=== PATIENT | female | born 1955 | race Caucasian/White ===

== ENCOUNTER 2016-11-06 04:01 | Emergency (ER) | payer OTHER ==
[~2016-11-06] VITALS: Ht 172.7 cm; Wt 90.0 kg
[2016-11-06 04:04] VITALS: BP 145/70; PULSE 99; RESP 16; TEMP 98.3; O2SAT 98
[2016-11-06] MEDS ORDERED: ALPR.5 PO (04:53)
[2016-11-06] MEDS ORDERED: CYCL7.5T33 PO (04:53)
[2016-11-06] MEDS ORDERED: ORPHENADRINE INJ 60 MG/2 ML AMP IM ONE (05:00)
[2016-11-06] MEDS ORDERED: MORPHINE SULFATE 8 MG/ML INJ IV PUSH ONE (05:00)
[2016-11-06] MEDS ORDERED: PROMETHAZINE INJ 25 MG/ML VIAL IM ONE (05:00)
[2016-11-06] MEDS ORDERED: CYCL1TAB29 PO (05:11)
--- NOTE | 2016-11-06 05:28 | RADRPT ---
EXAM DATE/TIME: 11/06/2016 05:06 [facility] COMPARISON: No previous studies available for comparison. INDICATIONS : Right upper back and neck pain. RADIATION DOSE: 40.64 CTDIvol (mGy) MEDICAL HISTORY : None SURGICAL HISTORY : Tubal ligation. ENCOUNTER: Initial ACUITY: 1 day PAIN SCALE: 8/10 LOCATION: Right neck TECHNIQUE: Volumetric scanning of the cervical spine was performed. Multiplanar reconstructions in the sagittal, coronal and oblique axial planes were performed. Using automated exposure control and adjustment o f the mA and/or kV according to patient size, radiation dose was kept as low as reasonably achievable to obtain optimal diagnostic quality images. FINDINGS: VERTEBRAE: Normal vertebral body height. 10 mm mixed lytic and sclerotic focus seen in the anterior aspect of th e C6 vertebral body that is most likely reactive. ALIGNMENT: No evidence of subluxation. C2-C3: The bony spinal canal is normal in size. No evidence of disc bulge or herniation. The neural forami na are bilaterally patent. C3-C4: The bony spinal canal is normal in size. No evidence of disc bulge or herniation. The neural forami na are bilaterally patent. C4-C5: The bony spinal canal is normal in size. No evidence of disc bulge or herniation. The neural forami na are bilaterally patent. C5-C6: There is moderate to severe disc space narrowing with a small, broad posterior disc osteophyte comple x and moderate uncovertebral and facet osteoarthritis. There is resultant mild to moderate right and mild left foraminal encroachment. Superimposed soft appearing moderate sized right paracentral disc p rotrusion also present which causes mild to moderate spinal stenosis eccentric towards the right and probable short segment cord compression. C6-C7: The disc has moderate to severe loss of height and there is a small, broad posterior disc osteophyte complex. There is mild bilateral uncovertebral and facet osteoarthritis. Mild bilateral foraminal diane nosis noted. There is no significant spinal stenosis. C7-T1: The bony spinal canal is normal in size. No evidence of disc bulge or herniation. The neural forami na are bilaterally patent. CONCLUSION: 1. Cervical spine degenerative changes at C5/C6 and C6/C7 as above. 2. Mild to moderate right, mild left foraminal stenosis and mild to moderate spinal stenosis at C5/C6 . 3. Mild bilateral foraminal encroachment at C6/C7. 4. 10 mm mixed lytic and sclerotic focus of the C6 vertebral body, indeterminate but most likely dege nerative in etiology. 5. There is no fracture or subluxation of the cervical spine. Srinivas Yao MD on November 06, 2016 at 5:19 Board Certified Radiologist. This report was verified electronically.
--- NOTE | 2016-11-06 05:30 | PD ---
HPI Chief Complaint: Back/ Neck Pain or Injury Time Seen by Provider: 05:23 Travel History International Travel<30 days: No Contact w/Intl Traveler<30days: No Traveled to known affect area: No History of Present Illness HPI 61-year-old white female presents to emergency department accompanied by her for evaluation of neck pain. The patient states that she has a history of chronic back pain. She also has some intermittent pain in her neck. She states 2 weeks ago she had pain develop in the right side of her neck. She takes Flexeril for muscle pain. She states that the pain seemed to improve for a week but then has returned over the past week. She states the pain radiates from her right shoulder up into her right neck and down her right arm. She states the pain can be severe and incapacitating at times. She denies any direct trauma. She denies any acute bowel or bladder changes. She does state that now that her neck is started to bother her this is exacerbated her lower back pain. Patient states that she is allergic to codeine and Percocet. She states that they make her sick and vomit. She states that she can take morphine but does use Phenergan associated with it to prevent nausea. The patient's family doctor is Dr. Dunn. She has not spoken with him regarding her pain. She would like to get a referral to Dr. Clemens. [facility] Past Medical History Narrative Medical Chronic neck and back pain Tetanus Vaccination: < 5 Years ?: Not LMP: TUBAL Past Surgical History Narrative Surgical cHOLECYSTECTOMY, TUBAL LIGATION Social History Alcohol Use: Yes Tobacco Use: No Substance Use: No Allergies-Medications (Allergen,Severity, Reaction): Coded Allergies: Codeine (Verified Allergy, Intermediate, VOMITING, 11/06/16) Iodine (Verified Allergy, Intermediate, HIVES AND SOB, 11/06/16) Latex (Verified Allergy, Intermediate, SKIN SANTILLAN, 11/06/16) Percocet (Verified Allergy, Intermediate, VOMITING AND PASSING OUT, 11/06/16 ) Sulfa (Verified Allergy, Intermediate, HIVES AND VOMITING, 11/06/16) Reported Meds & Prescriptions Reported Meds & Active Scripts Active Deltasone (Prednisone) 20 Mg Tab 40 Mg PO BID Lortab (Hydrocodone-Acetaminophen) 5-325 Mg Tab 1 Tab PO Q6H PRN Phenergan (Promethazine HCl) 25 Mg Tab 25 Mg PO Q6H PRN Reported Flexeril (Cyclobenzaprine HCl) 10 Mg Tab 10 Mg PO TID Xanax (Alprazolam) 0.5 Mg Tab 0.5 Mg PO Q6H PRN Review of Systems Except as stated in HPI: all other systems reviewed are Neg HENT: Positive: Headaches, Neck Stiffness, Neck Pain Cardiovascular: No: Chest Pain or Discomfort, Tachycardia Respiratory: No: Cough Gastrointestinal: No: Nausea, Vomiting, Abdominal Pain Genitourinary: No: Dysuria, Hematuria Musculoskeletal: Positive: Myalgias, Arthralgias, Limited ROM, Cramping, Pain, No: Weakness, Atrophy Skin: No Rash, No Itching Physical Exam Narrative GENERAL: Well-developed, well-nourished in no apparent distress. Nontoxic appearing. HEAD: Normocephalic, atraumatic. EYES: Pupils equal round and reactive. Extraocular motions intact. No scleral icterus. No injection or drainage. ENT: Nose clear. Throat without erythema, tonsillar hypertrophy or exudate. Uvula midline. Airway patent. NECK: Trachea midline. Supple, no central bony tenderness. She has right paracervical muscle tenderness down into the periscapular region. She reports radicular pain into the right arm. CARDIOVASCULAR: Regular rate and rhythm without murmurs, gallops, or rubs. RESPIRATORY: Clear to auscultation. Breath sounds equal bilaterally. No wheezes , rales, or rhonchi. GASTROINTESTINAL: Abdomen soft, non-tender, nondistended. No hepato-splenomegaly , or palpable masses. No guarding. EXTREMITIES: No clubbing, cyanosis, or edema. No joint tenderness. BACK: Complaints of tenderness no lower paralumbar spine. Without deformity. No flank tenderness. No saddle anesthesia. NEUROLOGICAL: Awake, alert and oriented x 3 .Cranial nerves grossly intact. Motor and sensory grossly within normal limits. Normal speech. Data Data Last Documented VS Vital Signs Date Time Temp Pulse Resp B/P Pulse Ox O2 Delivery O2 Flow Rate FiO2 11/06/16 04:04 98.3 99 16 145/70 98 Room Air Orders Promethazine Inj (Phenergan Inj) (11/06/16 05:00) Morphine Inj (Morphine Inj) (11/06/16 05:00) Orphenadrine Inj (Norflex Inj) (11/06/16 05:00) Ct Cerv Spine W/O Contrast (11/06/16 04:52) MDM Medical Decision Making Medical Screen Exam Complete: Yes Emergency Medical Condition: Yes Medical Record Reviewed: Yes Interpretation(s) Last 24 hours Impressions C[address] Spine CT 11/06/16 0452 Signed Impressions: Service Date/Time: Sunday, November 06, 2016 05:06 - CONCLUSION: 1. Cervical spine degenerative changes at C5/C6 and C6/C7 as above. 2. Mild to moderate right, mild left foraminal stenosis and mild to moderate spinal stenosis at C5/C6. 3. Mild bilateral foraminal encroachment at C6/C7. 4. 10 mm mixed lytic and sclerotic focus of the C6 vertebral body, indeterminate but most likely degenerative in etiology. 5. There is no fracture or subluxation of the cervical spine. Srinivas Yao MD Differential Diagnosis MDM: Neck sprain, spasm, HNP Narrative Course Patient's given Phenergan 50 mg IM, morphine 8 mg IM and 60 mg and Norflex IM. The patient states that her pain is improving. They are given a copy of the CAT scan report. She is aware that she has cervical radiculopathy secondary to arthritic changes. This is cervical radiculopathy, exacerbation of chronic back pain Diagnosis Primary Impression: Cervical radiculopathy Additional Impression: Acute exacerbation of chronic low back pain Patient Instructions: Narcotic given in the ED, General Instructions Additional Instructions: Rest. Ice for the next 3 days followed by heat . Continue her Flexeril. Phenergan 30 minutes before taking your Lortab. Prednisone.. Follow-up with a primary care doctor in 1-2 days. Follow-up with a neurosurgeon for evaluation. Return to the ER for emergencies. Med/Other Pt SpecificInfo: Prescription(s) given Scripts Prednisone (Deltasone)20 Mg Tab40 Mg PO BID #28 TAB Prov:Carmen Van MD 11/06/16 Hydrocodone-Acetaminophen (Lortab)5-325 Mg Tab1 Tab PO Q6H PRN (PAIN) #20 TAB Prov:Carmen Van MD 11/06/16 Promethazine (Phenergan)25 Mg Tab25 Mg PO Q6H PRN (Nausea/Vomiting) #20 TAB Prov:Carmen Van MD 11/06/16 Disposition: 01 DISCHARGE HOME Condition: Stable Rosalio Mayo Nov 06, 2016 05:30
[2016-11-06] MEDS ORDERED: PRED-503 PO (05:39)
[2016-11-06] MEDS ORDERED: PROM25TA5 PO (05:39)
[2016-11-06] MEDS ORDERED: HYDR-3533 PO (05:39)
[2017-01-08] MEDS ORDERED: ZOFR4TAB PO (15:06)
[2017-01-27] MEDS ORDERED: ZOFR4TAB PO (09:13)
[2017-02-10] MEDS ORDERED: TIZA2TAB PO (12:09)
[2017-02-10] MEDS ORDERED: ALPR.5 PO (12:09)
[2017-03-05] MEDS ORDERED: TIZA4 PO (16:27)
== END 2016-11-06 06:43 | disposition home or self-care (01) ==
LOC: NEPB 04:01
DX: M54.12 Radiculopathy, cervical region (principal); M54.9 Dorsalgia, unspecified
CPT/HCPCS: 72125; 96372; 99283; J2270; J2360; J2550

== ENCOUNTER → 2017-02-10 | Outpatient (CLI) | payer OTHER ==
[~2017-02-10] MED LIST: ALPR.5 PO; BENA25TA3 PO; CYCL1TAB29 PO; HYDR-3533 PO; HYDR-3583 PO; PRED-503 PO; PROM25TA5 PO; TIZA2TAB PO; TIZA4 PO; ZOFR4TAB PO
== END ==
LOC: CPRE 11:37
PROVIDERS: ATTEND Neurological Surgery
DX: Z01.812 Encounter for preprocedural laboratory examination (principal)

== ENCOUNTER 2017-02-11 06:05 | Observation (INO) | payer OTHER ==
--- NOTE | 2017-02-10 21:28 | MH ---
cc: AMBER LIMON MD, ROHIT K. M.D. DATE OF ADMISSION 02/11/2017 ADMISSION DIAGNOSIS Cervical degenerative disk disease. HISTORY OF PRESENT ILLNESS This is a 61-year-old female who presented to us for evaluation of neck and right upper extremity pain. She has had a chronic history of neck pain for 10-12 years which was exacerbated in November when she was vacuuming. She states she could feel the muscles in her neck tighten up. She states her symptoms progressively got worse and was having pain shoot into the right trapezius and scapula, superior scapula, right biceps and axilla area. She would get shooting pins and needles into her right hand with numbness. She has decreased strength in the right hand and drops stuff all of the time. She has had some similar symptoms in the left forearm but not like the right. She has been to PT three sessions and has not been much relief. She has been to pain management for her low back and states she would not go back for her neck. PAST MEDICAL HISTORY Significant for: 1. Hyperlipidemia. 2. Allergic rhinitis. 3. Gastroesophageal reflux disease. 4. Pain disorder. 5. Low vitamin D. 6. Diverticulosis. 7. Fatty liver. 8. Osteoarthritis 9. Sleep apnea per her history form. PAST SURGICAL HISTORY 1. Left knee arthroscopic surgery. 2. Low back surgery. 3. Cholecystectomy. 4. Tubal ligation CURRENT MEDICATIONS She is takin. Tizanidine 4 mg three times a day. 2. Ondansetron 4 mg p.r.n. nausea. 3. Hydrocodone 5/325 q.8 h. ALLERGIES TO MEDICATIONS SHE IS ALLERGIC TO SULFA, CODEINE, PERCOCET, LATEX, BETADINE, AND IODINE. SHE STATES THAT SHE HAS A SENSITIVITY TO PAIN MEDICATIONS UNLESS SHE GETS ANTIEMETICS SHE GETS NAUSEATED. SHE ALSO SAYS THAT SHE IS ALLERGIC TO TAPE ADHESIVES AND BANDAGE ADHESIVE BUT IS ABLE TO TOLERATE PAPER TAPE. FAMILY HISTORY Father is from a stroke and congestive heart failure. Her mother is at 71 had colon cancer and uterine cancer. She has a brother who is alive. SOCIAL HISTORY She is . She has one child. She does not smoked and has not smoked before. She drinks occasionally two to three drinks a week. REVIEW OF SYSTEMS CONSTITUTIONAL: She denies any fever or chills. EARS, NOSE, AND THROAT: Positive for sinus congestion. No pharyngitis. CARDIOVASCULAR: No chest pain. Positive for occasional palpitations. RESPIRATORY: No cough or shortness of breath. GENITOURINARY: No dysuria or hematuria. MUSCULOSKELETAL: Positive for neck pain. SKIN: No rashes. Positive for pruritus. NEUROLOGICAL: No difficulty with speech or memory. GASTROINTESTINAL: Positive for nausea and constipation. PSYCHIATRIC: Positive for anxiety or depression symptoms. ENDOCRINE: Positive for polyuria or polydipsia. HEMATOLOGIC: Positive for easy bruising and bleeding tendencies. IMAGING Data reviewed, CT scan of the cervical spine from November 06, 2016 [place] emergency room reveals a severe disk degeneration with disk height collapse at the C5-C6 and C6-C7 levels with significant right foraminal stenosis at C5-C6. She has a chronic C6 vertebral body sclerotic / lytic abnormality which appears degenerative in nature. MRI of the cervical spine from November 26, 2016 reveals a disk/osteophyte complex at the C5-C6 level with a right-sided foraminal stenosis. There is also degenerative disk disease and protrusion at the C6-C7 level without any significant spinal foraminal stenosis. PHYSICAL EXAMINATION HEAD: Normocephalic, atraumatic. NECK: Supple. No carotid bruits heard on auscultation. She has positive foraminal closure signs with tilting the head to the right side. EYES: Reveal pupils are equal. Sclerae is nonicteric. LUNGS: Clear to auscultation bilaterally. HEART: Regular rate and rhythm. Normal S1-S2. ABDOMEN: Soft and nontender. Positive bowel sounds. SKIN: Reveals no cyanosis or erythema. MUSCULOSKELETAL: The patient has giveaway weakness in the right upper extremity 4/5. Otherwise she has 5/5 strength in the left upper extremity. She ambulates without any assistive device. NEUROLOGIC: She is awake and alert and oriented. Cranial nerves II through XII appear grossly intact. Her speech is fluent. Comprehension is good. Sensation is decreased in her right upper extremity in all distributions otherwise is intact. Reflexes are 2+ in the upper extremities, diminished in the lower extremities. There is no García reflex. IMPRESSION A 61-year-old female with a chronic history of neck and low back pain. Her neck pain worsened recently with right upper extremity C6 radiculopathy although she says she feels numbness and paresthesias distally in her fingers all over the right hand along with subjective weakness in the right upper extremity. This did prompt an emergency room visit and subsequently she underwent physical therapy. She states that she cannot live with her current level of discomfort. She also suffers from chronic low back pain and has had lumbar spine surgery in the past but states that the neck and right upper extremity symptoms bother her the most at this point. She has advanced C5-C6 and C6-C7 degenerative disk disease along with a disk/osteophyte complex and right-sided C5-C6 foraminal stenosis which appeared to be the most symptomatic. We have discussed the treatment options with the patient in great detail which include continued conservative treatment measures with physical therapy and pain management versus surgical intervention. We have discussed the procedure which would entail a C5 / C6 anterior cervical fusion with interbody cage and cervical plate placement in detail. We have discussed the risks involved with surgery to include but not limited to bleeding, infection, muscle weakness, voice hoarseness, difficulty swallowing, heart attack, stroke, blood clots, non fusion, scar tissue formation, among others. The patient states that she understands the procedure as well as the risks involved and she is requesting that we proceed with surgical intervention. She was therefore scheduled accordingly. DICTATED BY: Forest Briones PA-C MD LG Hernandez/SINAI /4:46 PM /8:59 PM
[~2017-02-11] VITALS: Ht 172.7 cm; Wt 95.8 kg
[~2017-02-11 06:05] MED LIST changes: -BENA25TA3 PO; -CYCL1TAB29 PO; -HYDR-3583 PO; -PRED-503 PO; -PROM25TA5 PO; -TIZA4 PO
[2017-02-11] MEDS ORDERED: SODIUM CHLOR 0.9% 1000 ML INJ 1,000 ML IV SCH (06:30)
[2017-02-11] MEDS ORDERED: METOPROLOL TARTRATE 25 MG TAB PO PRN (06:30)
[2017-02-11] MEDS ORDERED: SODIUM CHLORID 0.9% 500 ML IV PRN (06:30)
[2017-02-11] MEDS ORDERED: VANCOMYCIN HCL 1000 MG ON-CALL/NS 250 ML IV SCH ×2 (06:30)
[2017-02-11] MEDS ORDERED: LACTATED RINGER'S 1000 ML IV PRN (06:30)
[2017-02-11] MEDS ORDERED: CHLORHEXIDINE GLUCONATE 2 % 1 PACK (2 CLOTHS) TOPICAL PRN (06:30)
[2017-02-11] MEDS ORDERED: INSULIN HUMAN REGULAR 1,000 UNITS/10 ML VIAL SQ PRN (06:30)
[2017-02-11] MEDS ORDERED: BENA25TA3 PO (06:42)
[2017-02-11 06:44] VITALS: BP 142/77; PULSE 63; RESP 20; TEMP 99; O2SAT 97
[2017-02-11] MEDS ORDERED: APREPITANT 40 MG CAP ONE (08:27)
[2017-02-11] MEDS ORDERED: ACETAMINOPHEN 1000 MG/100 ML VIAL IV ONE (08:28)
[2017-02-11] MEDS ORDERED: HYDROmorphone HCL PF 2 MG/ML VIAL ONE (08:28)
[2017-02-11] MEDS ORDERED: fentaNYL CITRATE 250 MCG/5 ML AMP ONE (08:28)
[2017-02-11] MEDS ORDERED: MIDAZOLAM HCL 2 MG/2 ML VIAL ONE ×2 (08:28)
[2017-02-11] MEDS ORDERED: diphenhydrAMINE HCL 50 MG/ML VIAL ONE (08:31)
[2017-02-11] MEDS ORDERED: VANCOMYCIN HCL 1000 MG VIAL ONE (08:47)
[2017-02-11] MEDS ORDERED: BUPIVACAINE/EPINEPHRINE 0.5% PF 30 ML VIAL ONE (08:48)
[2017-02-11] MEDS ORDERED: GELFOAM SIZE 100 ONE (08:48)
[2017-02-11] MEDS ORDERED: THROMBIN (TOPICAL) 5,000 UNIT VIAL ONE (08:48)
[2017-02-11] MEDS ORDERED: NS + KCL 20 MEQ INJ 1,000 ML IV SCH (11:28)
[2017-02-11] MEDS ORDERED: PROCHLORPERAZINE INJ 10 MG/2 ML VIAL IV PUSH PRN (11:30)
[2017-02-11] MEDS ORDERED: SODIUM CHLORIDE 0.9% FLUSH 10 ML FLUSH IV FLUSH PRN (11:30)
[2017-02-11] MEDS ORDERED: ALUMINUM/MAGNESIUM/SIMETH 30 ML CUP PO PRN (11:30)
[2017-02-11] MEDS ORDERED: ZOLPIDEM TARTRATE 5 MG TAB PO PRN (11:30)
[2017-02-11] MEDS ORDERED: ACETAMINOPHEN/HYDROcodone 325 MG/10 MG TAB PO PRN (11:30)
[2017-02-11] MEDS ORDERED: ACETAMINOPHEN 325 MG TAB PO PRN (11:30)
[2017-02-11] MEDS ORDERED: MAGNESIUM HYDROXIDE SUSP 30 ML CUP PO PRN (11:30)
[2017-02-11] MEDS ORDERED: ALPRAZolam 0.5 MG TAB PO PRN (11:30)
[2017-02-11] MEDS ORDERED: MENTHOL LOZENGE BUCCAL PRN (11:30)
[2017-02-11] MEDS ORDERED: cloNIDine HCL 0.1 MG TAB PO PRN (11:30)
[2017-02-11] MEDS ORDERED: MORPHINE SULFATE 4 MG/ML INJ IV PRN (11:30)
--- NOTE | 2017-02-11 11:36 | PD.OP ---
Arnol Dunn MD Operative Report Date of Surgery: February 11, 2017 Preoperative Diagnosis: Intractable neck pain with the right C6 radiculopathy; C5-6 degenerative disc disease with disc osteophyte complex and associated spinal/foraminal stenosis Postoperative Diagnosis: Same Procedure: Anterior cervical C5-6 microdiscectomy with interbody fusion; anterior C5-6 cervical plate placement; C5-6 interbody cage placed; microsurgical technique Anesthesia: Gen. endotracheal by Isabel Proctor Surgeon: Aldo Clemens M.D. City Engineer(s): Zamzam Vyas Operation and Findings: Following administration of general endotracheal anesthesia, the patient received a gram of vancomycin and Decadron 10 mg intravenously. Sequential compression devices were placed in supine position on a North table and all pressure points adequately padded. The head secured in a donut and anterior cervical region then shaved and prepped with Chloraprep and sterilely draped with Ioban along with the usual sterile draping. A transverse skin incision on the left side of the neck was then made after infiltrating the skin with 0.5% Marcaine with epinephrine solution extending down through the platysma. At the anterior border of the sternocleidomastoid further dissection was undertaken developing a plane between the carotid sheath laterally and the trachea esophagus medially. The prevertebral fascia was exposed and dissected out. The medial attachments of the longus colli muscles were detached and a self- retaining retractor used for exposure. The C5-6 disc space was localized with a marking the disc space and using lateral fluoroscopy. Taylor distraction screws 14 mm length were placed one in the C5 and one in the C6 body interbody distraction and exposure. There was significant disc degeneration with disc height collapse and anterior osteophytes noted at the C5-6 level and the osteophytes were resected with a Leksell and annulus incised with a 15 blade and further dissection undertaken using microtechnique with microscope magnification. Diskectomy was undertaken with pituitaries and the endplates were also decorticated with curettes and drill bit. And more posteriorly there was disk osteophyte complex compressing the thecal sac along with a significant uncovertebral joint hypertrophy with right foraminal stenosis which was decompressed along with removal of the posterior longitudinal ligaments at both levels. The foramen was decompressed bilaterally using a Kerrison's and palpation with a nerve hook, the exiting nerve roots were felt to be free. The area was then copiously irrigated. I then placed a Peek cage packed with local autograft bone at the C5-6 interspace under fluoroscopy guidance. Taylor distraction pins were removed and the holes plugged with Gelfoam for hemostasis. In order to facilitate the fusion and provide stabilization, a Precision spine cervical plate was then placed with two 14 mm variable angle screws in the C5 body and two 14 mm fixed angle screws in the C6 body. The plate screw locking mechanism was then engaged. AP and lateral fluoroscopy confirmed good placement of the construct and the retractor was then removed. Muscular bleeding points were cauterized with bipolar cautery and Gelfoam was then also used for hemostasis which was removed. The platysma was then approximated using 3-0 Vicryl interrupted stitches and 3-0 Vicryl subcuticular stitch also placed in an interrupted fashion, and final skin closure was with Mastisol and Steri-Strips. Sterile dressing was then applied. The patient was then extubated and taken to the recovery room. There are no intraoperative complications and all sponge and needle counts were correct at the end of procedure. Estimated blood loss was about 30 cc. The patient did undergo intraoperative neurologic monitoring which remained stable throughout the surgery. Aldo Clemens MD February 11, 2017 11:36
--- NOTE | 2017-02-11 11:42 | RADRPT ---
EXAM DATE/TIME: 02/11/2017 09:01 [facility] COMPARISON: No previous studies available for comparison. INDICATIONS : Post-op C5-C6 anterior cervical fusion. MEDICAL HISTORY : None. SURGICAL HISTORY : None. ENCOUNTER: Initial ACUITY: 1 day PAIN SCORE: Non-responsive. LOCATION: neck CONCLUSION: Fluoroscopic images are obtained during placement of compression plate at C5-6. Intervertebral disc d evice also noted. Forest Hernandez MD on February 11, 2017 at 11:37 Board Certified Radiologist. This report was verified electronically.
--- NOTE | 2017-02-11 11:43 | RADRPT ---
EXAM DATE/TIME: 02/11/2017 09:01 [facility] COMPARISON: No previous studies available for comparison. INDICATIONS : C5-C6 anterior cervical fusion. Level localization. MEDICAL HISTORY : None. SURGICAL HISTORY : None. ENCOUNTER: Initial ACUITY: 1 day PAIN SCORE: Non-responsive. LOCATION: neck CONCLUSION: Lateral Fluoroscopic image of the cervical spine demonstrate temporary probe overlying the anterior d isc space at C5-6.. Forest Hernandez MD on February 11, 2017 at 11:40 Board Certified Radiologist. This report was verified electronically.
[2017-02-11] MEDS ORDERED: PILL SPLITTER OTHER PRN (11:45)
[2017-02-11] MEDS ORDERED: *morphine SULFATE 8 MG/ML PERIprocedure ONLY ONE ×3 (11:46→12:06)
[2017-02-11] MEDS ORDERED: *ONDANSETRON 4 MG VIAL PERIprocedural Use ONLY ONE (11:47)
[2017-02-11] MEDS ORDERED: PROPOFOL 200 MG/20 ML AMP IV ONE (12:00)
[2017-02-11] MEDS ORDERED: ONDANSETRON HCL 4 MG/2 ML VIAL IV PUSH ONE (12:00)
[2017-02-11] MEDS: METOCLOPRAMIDE HCL 10 MG/2 ML VIAL IVS SCH ×2 (12:00→20:18)
[2017-02-11] MEDS ORDERED: NORMOSOL R INJ 1,000 ML IV ONE (12:00)
[2017-02-11] MEDS ORDERED: DO NOT ADM ANY ANTICOAGULANT DRUGS PRN (12:15)
[2017-02-11] MEDS ORDERED: *HYDROmorphone PF 1 MG VIAL PERIprocedural Use ONLY ONE (12:24)
[2017-02-11] MEDS: ACETAMINOPHEN/HYDROcodone 325 MG/10 MG TAB PO PRN ×2 (14:33→19:06)
[2017-02-11] MEDS: DEXAMETHASONE SOD PHOS 4 MG/ML VIAL IV SCH ×2 (14:35→20:18)
[2017-02-11] MEDS: ONDANSETRON HCL 4 MG/2 ML VIAL IV PRN (14:35)
[2017-02-11 16:00] VITALS: BP 98/53; PULSE 65; RESP 16; TEMP 96.2; O2SAT 93
[2017-02-11] MEDS: diphenhydrAMINE HCL 50 MG CAP PO PRN (19:08)
[2017-02-11] MEDS: DOCUSATE SODIUM 100 MG CAP PO SCH (20:17)
[2017-02-11] MEDS: SODIUM CHLORIDE 0.9% FLUSH 10 ML FLUSH IV FLUSH SCH (20:18)
[2017-02-11 20:48] VITALS: BP 127/59; PULSE 71; RESP 18; TEMP 96.7; O2SAT 96
[2017-02-12 00:06] VITALS: BP 114/58; PULSE 66; RESP 18; TEMP 96.5; O2SAT 95
[2017-02-12] MEDS: ACETAMINOPHEN/HYDROcodone 325 MG/10 MG TAB PO PRN ×3 (00:44→09:21)
[2017-02-12] MEDS: METOCLOPRAMIDE HCL 10 MG/2 ML VIAL IVS SCH (03:36)
[2017-02-12] MEDS: DEXAMETHASONE SOD PHOS 4 MG/ML VIAL IV SCH (03:36)
[2017-02-12 03:50] VITALS: BP 102/52; PULSE 70; RESP 17; TEMP 98.2; O2SAT 95
[2017-02-12 07:51] VITALS: BP 104/54; PULSE 76; RESP 18; TEMP 96.9; O2SAT 96
[2017-02-12] MEDS: DOCUSATE SODIUM 100 MG CAP PO SCH (07:53)
[2017-02-12] MEDS ORDERED: PANTOPRAZOLE SOD 40 MG DELAYED RELEASE TAB PO SCH (09:00)
[2017-02-12] MEDS: SODIUM CHLORIDE 0.9% FLUSH 10 ML FLUSH IV FLUSH SCH (09:00)
[2017-02-12] MEDS: diphenhydrAMINE HCL 50 MG CAP PO PRN (09:20)
--- NOTE | 2017-02-12 09:27 | HHI.NSPN ---
(Forest Briones) History Chief Complaint: Incisional discomfort (Forest Briones) Interval History 02/12/17: Pt complains of incisional neck pain. No radiculopathy or paresthesias in UEs. Pt ambulating short distance to bathroom well. She requests to be discharge with muscle relaxants and antiemetics. Voiding well. ( Forest Briones) Review of Systems General: Negative for: fever, chills, insomnia Respiratory: Negative for: shortness of breath, cough, sputum Cardiovascular: Negative for: chest pain Gastrointestinal: Positive for: nausea (Controlled with antiemetics. Pt gets nausea with pain medication.), Negative for: vomitting, diarrhea, constipation (Forest Briones) Exam Results Vital Signs Date Time Temp Pulse Resp B/P Pulse Ox O2 Delivery O2 Flow Rate FiO2 02/12/17 07:51 96.9 76 18 104/54 96 02/11/17 13:20 Nasal Cannula 3 Intake and Output 02/11/17 02/11/17 02/11/17 07:59 15:59 23:59 Intake Total 2300 ml 480 ml Output Total 25 ml Balance 2275 ml 480 ml (Froest Briones) Physical Examination Resp: CTA bilaterally Heart: NSR no murmurs Abd: Soft positive bs Skin: Incision clean and dry. New bandage placed. Muscle: Moves all 4 extremities with good strength. Ambulates short distance to bathroom. Neuro: Pt awake and alert. Follows commands well. Speech clear and appropriate. (Forest Briones) Lab, Micro, Other Results Last Impressions Cervical Spine X-Ray 02/11/17 0000 Signed Impressions: Service Date/Time: Saturday, February 11, 2017 09:01 - CONCLUSION: Lateral Fluoroscopic image of the cervical spine demonstrate temporary probe overlying the anterior disc space at C5-6.. Forest Hernandez MD 02/11/17 02/11/17 02/12/17 14:59 22:59 06:59 Intake Total 2300 ml 480 ml 480 ml Output Total 25 ml Balance 2275 ml 480 ml 480 ml Intake Oral 500 ml 480 ml 480 ml IV Total 100 ml Other 1700 ml Output Urine Total 0 ml Estimated Blood Loss 25 ml # Voids 1 3 5 # Bowel Movements 0 0 0 (Forest Briones) Medical Decision Making Impression and Plan A: 61 y/o FM s/p C5/C6 anterior cervical fusion. P: Discharge pt home. discussed restrictions Follow up as instructed in 6 weeks. (Forest Briones) Attending Statement The exam, history, and the medical decision-making described in the above note were completed with the assistance of the mid-level provider. I reviewed and agree with the findings presented. I attest that I had a [id number] encounter with the patient on the same day, and personally performed and documented my assessment and findings in the medical record. (Aldo Clemens MD) Forest Briones February 12, 2017 09:27 Aldo Clemens MD February 12, 2017 16:14
[2017-02-12] MEDS ORDERED: HYDR-3583 PO (09:33)
[2017-02-12] MEDS ORDERED: TIZA4 PO (09:33)
[2017-02-12] MEDS ORDERED: ZOFR4TAB PO (09:33)
[2017-02-12] MEDS: ONDANSETRON HCL 4 MG/2 ML VIAL IV PRN (09:44)
[2017-02-12 10:48] VITALS: RESP 16
[2017-03-05] MEDS ORDERED: TIZA4 PO (16:27)
== END 2017-02-12 11:21 | disposition home or self-care (01) ==
LOC: HSDC 06:05 → HSDI 11:32 → N06A 13:52
PROVIDERS: ADMIT Neurological Surgery; ATTEND Neurological Surgery
DX: M50.122 Cervical disc disorder at C5-C6 level with radiculopathy (principal); M48.02 Spinal stenosis, cervical region; M25.78 Osteophyte, vertebrae; E78.5 Hyperlipidemia, unspecified; K21.9 Gastro-esophageal reflux disease without esophagitis; M19.90 Unspecified osteoarthritis, unspecified site; Z88.3 Allergy status to other anti-infective agents; Z91.041 Radiographic dye allergy status; Z91.040 Latex allergy status; Z88.5 Allergy status to narcotic agent; Z88.2 Allergy status to sulfonamides; Z91.048 Other nonmedicinal substance allergy status
CPT/HCPCS: 20936; 22551; 22853; 72020; 72040; 76000; C1713; G0378; J0131; J0690; J1100; J1170; J1200; J2250; J2270; J2405; J2765; J3010; J3370; J3480; J7050; J7120; J8501; Q0163